=== PATIENT | female | born 2000 | race Asian ===

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

== ENCOUNTER 2019-02-28 19:11 | Emergency (ER) | payer OTHER ==
[2019-02-28 19:25] VITALS: BP 119/67
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
== END 2019-02-28 19:40 | disposition home or self-care (01) ==
LOC: UCEAST 19:11
DX: S06.0X9A Concussion with loss of consciousness of unspecified duration, initial encounter (principal); H53.149 Visual discomfort, unspecified; W50.1XXA Accidental kick by another person, initial encounter; Y92.9 Unspecified place or not applicable
CPT/HCPCS: 99211; G0463